=== PATIENT | female | born 1975 | race Caucasian/White ===

== ENCOUNTER 2021-08-15 18:56 | Inpatient (IN) ==
[2021-08-16 00:29] LABS: Alanine Aminotransferase 38 Units/L (7-52); Albumin 3.8 g/dL (3.5-5.7); Albumin/Globulin Ratio 1.1 (1.1-2.2); Alkaline Phosphatase 184 Units/L (34-104); Aspartate Amino Transferase 44 Units/L (13-39); BUN/Creatinine Ratio 17 (6-26); Bilirubin,Total 0.4 mg/dL (0.3-1.0); Blood Urea Nitrogen 11 mg/dL (6-20); Calcium 9.3 mg/dL (8.6-10.3); Carbon Dioxide 30 mEq/L (23-29); Chloride 97 mEq/L (98-107); Globulin 3.4 g/dL (2.4-3.5); Glucose 102 mg/dL (70-105); Osmolality,Calculated 280 (280-300); Sodium 135 mEq/L (136-145); Total Protein 7.2 g/dL (6.4-8.9); eGFR For African Americans > 60 (> 60); eGFR For Non-African Americans > 60 (> 60)
[2021-08-16 00:43] LABS: Thyroid Stimulating Hormone 0.021 mcIU/mL (0.340-5.600)
[2021-08-16 00:46] LABS: Basophils % 0.5 %; Eosinophils % 0.2 %; Hematocrit 36.7 % (35.3-44.9); Hemoglobin 12.5 g/dL (11.5-15.4); Immature Granulocytes % 0.2 % (0-4); Lymphocytes % 28.3 %; Mean Corpuscular HGB Conc 34.1 g/dL (31.6-35.5); Mean Corpuscular Hemoglobin 31.7 pg (28.0-33.3); Mean Corpuscular Volume 93.1 fL (83.0-100.0); Mean Platelet Volume 11.1 fL (9.4-12.4); Monocytes # 1.3 K/mcL (0.0-1.3); Platelet Count 273 K/mcL (140-400); Red Blood Count 3.94 M/mcL (3.82-4.97); Red Cell Distribution Width 12.4 % (11.5-14.5); Segmented Neutrophils % 48.8 %; White Blood Count 5.8 K/mcL (4.3-11.1)
[2021-08-16 00:50] LABS: Influenza A PCR Negative (Negative); Influenza B PCR Negative (Negative); Resp. Syncytial Virus PCR Negative (Negative)
[2021-08-16 00:53] LABS: SARS-CoV-2 by PCR (In House) Positive (Negative)
[2021-08-16 00:58] LABS: Lymphocytes # 1.6 K/mcL (0.6-4.6); Neutrophils # 2.8 K/mcL (1.6-8.9)
[2021-08-16 01:54] LABS: Platelet Estimate Normal (Normal); Reactive Lymphocytes Present (Not Present)
[2021-08-16] MEDS ORDERED: methylPREDNISolone 60 MG in 0.9 % Sodium Chloride 100 ML IVPB ONE (02:55)
[2021-08-16] MEDS ORDERED: Gadolinium Contrast Agent (WT Based) IV PRN (03:29)
[2021-08-16] MEDS ORDERED: GADOBUTROL 30 MMOL/30 ML VIAL IVP ONE (05:08)
[2021-08-16] MEDS ORDERED: Aspirin 325 MG TABLET PO ONE (07:42)
[2021-08-16] MEDS ORDERED: Perflutren Lipid Microsphere 1.3 ML in 0.9 % Sodium Chloride 8.7 ML IVP PRN (08:02)
[2021-08-16] MEDS ORDERED: Acetaminophen 325 MG TABLET PO PRN (08:03)
[2021-08-16] MEDS ORDERED: Ipratropium 1 PUFF INHALER IH PRN (08:04)
[2021-08-16] MEDS ORDERED: Ondansetron 4 MG/2 ML VIAL IVP PRN (08:04)
[2021-08-16] MEDS ORDERED: Naloxone 0.4 MG/ML INJ IVP PRN (08:04)
[2021-08-16 10:09] VITALS: O2SAT 97
[2021-08-16] MEDS ORDERED: Triamcinolone Acet 0.1% CRM 80 GM Tube TP SCH (10:30)
[2021-08-16] MEDS ORDERED: Triamcinolone Acet 0.1% CRM 15 GM TUBE TP SCH (10:45)
[2021-08-16] MEDS ORDERED: Isovue-370 500 ML BOTTLE IVP ONE (11:55)
[2021-08-16] MEDS ORDERED: *HR* Heparin 5,000 UNIT/ML VIAL SQ SCH (14:00)
[2021-08-16 14:58] LABS: Chol/HDL Ratio 3.8 (0-4.9)
[2021-08-16 15:31] VITALS: BP 130/84; PULSE 116; TEMP 97.9
[2021-08-16] MEDS ORDERED: Cyclosporine [Restasis] 1 EACH Droperette OP SCH (21:00)
[2021-08-17] MEDS ORDERED: Aspirin 81 MG TAB.CHEW PO SCH (09:00)
[2021-08-21 10:04] LABS: ANA IgG by ELISA DETECTED (None Detected)
[2021-08-22 04:59] LABS: APTT (LE Anticoag) 49 sec (32-48); Diluted Russell Viper Venom 35 sec (33-44); LE Coag APTT Mixing 41 sec (32-48); PT (LE-Anticoag) 13.6 sec (12.0-15.5); Thrombin Time 16.6 sec (14.7-19.5)
[2021-08-22 08:13] LABS: ANA HEp-2 IgG IFA DETECTED (<1:80); Anti Nuclear Ab Pattern SPECKLED
== END 2021-08-16 21:09 | disposition short-term general hospital (02) | DRG 64 ==
LOC: EMEROOARM 18:56 → 3BNU 18:56 → 2ANU 08-16 06:47 → SUATTDRO 08-16 14:38
PROVIDERS: ADMIT Internal Medicine; ATTEND Family Medicine